=== PATIENT | male | born 1960 | race Caucasian/White ===

== ENCOUNTER 2016-11-01 18:47 | Emergency (ER) | payer BC ==
[2016-11-01 19:16] VITALS: RESP 18
[2016-11-01] MEDS ORDERED: DIPH,PERTUS(ACELL)TETVAC-LF 0.5 ML VIAL IM ONE (19:35)
[2016-11-01] MEDS ORDERED: TOPICAL SKIN ADHESIVE 1 EACH AMP TOPICAL ONE (19:35)
--- NOTE | 2016-11-01 19:48 | ED ---
Wound/Laceration HPI - General Chief Complaint: Wound/Laceration Stated Complaint: head lac Time Seen by Provider: 11/01/16 19:23 Source: patient, family Mode of arrival: ambulatory Limitations: no limitations - History of Present Illness Initial Comments: 56-year-old male patient presented to emergency department today for evaluation of a laceration to his right parietal scalp. Patient states he was blowing with his head down when he ran into the corner of the shed. He states this occurred approximate 1 hour and a half ago. He states there was a small nail hanging down which cause a laceration. He states that it did cause him to jerk back, and the weight ability for positive fall backwards. He denies hitting his head or losing consciousness. States he does have thrombocytopenia and did have to hold pressure however was able to get the bleeding controlled. He denies any other injuries. He denies any current headache, dizziness, weakness , nausea, vomiting, numbness, or tingling. Patient denies any neck pain, back pain, chest pain, shortness of breath, abdominal pain, nausea, vomiting, or difficulties with bowel movements or urination. - Related Data Home Medications Medication Instructions Recorded Confirmed Aspirin 40.5 mg PO Q48H 11/01/16 11/01/16 Multivitamins, Thera [Multivitamin 1 tab PO DAILY 11/01/16 11/01/16 (formulary)] [place]-3 Fatty Acids/Fish Oil [Fish 1 cap PO DAILY 11/01/16 11/01/16 Oil 1,000 mg Softgel] Allergies Allergy/AdvReac Type Severity Reaction Status Date / Time No Known Allergies Allergy Verified 11/01/16 19:27 Review of Systems ROS Statement: Those systems with pertinent positive or pertinent negative responses have been documented in the HPI. ROS Other: All systems not noted in ROS Statement are negative. Past Medical History Additional Past Medical History / Comment(s): low platelets History of Any Multi-Drug Resistant Organisms: None Reported Past Surgical History: Hernia Repair Past Psychological History: No Psychological Hx Reported Smoking Status: Never smoker Past Alcohol Use History: None Reported Past Drug Use History: None Reported General Exam Limitations: no limitations General appearance: alert, in no apparent distress, other (Well-developed, well- nourished adult male patient in no acute distress. He is acutely responsive. Vital signs upon presentation her temperature 97.7F, pulse 64, respirations 18 , blood pressure 147/90, pulse ox 99% on room air.) Head exam: Present: other (There is a 2 cm superficial laceration to the right parietal scalp. Bleeding is controlled. There is no bony tenderness or step- off noted.) Eye exam: Present: normal appearance, PERRL, EOMI. Absent: scleral icterus, conjunctival injection, periorbital swelling ENT exam: Present: normal exam, normal oropharynx, mucous membranes moist Neck exam: Present: normal inspection, full ROM, other (Nontender, no step-off, no deformity to firm midline palpation of the posterior cervical spine. Full range of motion without pain or limitation.). Absent: tenderness, meningismus, lymphadenopathy Respiratory exam: Present: normal lung sounds bilaterally. Absent: respiratory distress, wheezes, rales, rhonchi, stridor Cardiovascular Exam: Present: regular rate, normal rhythm, normal heart sounds. Absent: systolic murmur, diastolic murmur, rubs, gallop, clicks GI/Abdominal exam: Present: soft, normal bowel sounds. Absent: distended, tenderness, guarding, rebound, rigid Extremities exam: Present: normal inspection, full ROM, normal capillary refill. Absent: tenderness, pedal edema, joint swelling, calf tenderness Back exam: Present: normal inspection, other (Nontender, no step-off, no deformity to firm midline palpation of the thoracic and lumbar vertebrae. Full range of motion without pain or limitation.). Absent: tenderness, vertebral tenderness Neurological exam: Present: alert, oriented X3, CN II-XII intact, other ( Strength in all 4 extremities is 5/5.) Psychiatric exam: Present: normal affect, normal mood Skin exam: Present: warm, dry, intact, normal color. Absent: rash Course Vital Signs 11/01/16 19:13 Temperature 97.7 F Pulse Rate 64 Respiratory 18 Rate Blood Pressure 147/90 O2 Sat by Pulse 99 Oximetry Medical Decision Making - Medical Decision Making [id number] male patient presents to emergency department today for evaluation after striking his head on a nail hanging down from a shed. Patient does have a superficial laceration to the right parietal scalp. This was repaired using Dermabond. Patient states that he did fall backwards, and was dazed for a few moments. Patient is neurologically intact. I did recommend a computed tomography scan as patient does have a history of thrombocytopenia. He declines testing at this time and states he feels fine. Patient is educated regarding signs or symptoms of infection. Educated regarding signs or symptoms of worsening head injury. He is instructed to return immediately should any of these things occur. He is instructed to follow up his primary care physician for recheck in 1-2 days. He is instructed to return for any other new, worsening, or concerning symptoms. Patient verbalizes understanding and agrees with this plan. Disposition Clinical Impression: Scalp laceration, Head injury Disposition: HOME SELF-CARE Condition: Good Instructions: Laceration (ED), Head Injury (ED), Skin Adhesive Care (ED) Additional Instructions: Keep wound clean and dry. Monitor for signs or symptoms of infection including redness, swelling, drainage of pus, fever Or chills. Return immediately for any signs of worsening head injury including but not limited to dizziness, weakness, headache, nausea, vomiting, blurred vision, or double vision. Follow up with your primary care physician for recheck 1-2 days. Return here immediately for any new, worsening, or concerning symptoms. Referrals: John Paul Wang DO [Primary Care Provider] - 1-2 days Time of Disposition: 20:13
[2016-11-01 20:20] VITALS: BP 144/88; PULSE 66; TEMP 97.6
== END 2016-11-01 20:20 | disposition home or self-care (01) ==
LOC: EC 18:47
DX: S01.01XA Laceration without foreign body of scalp, initial encounter (principal); Z79.82 Long term (current) use of aspirin; W45.0XXA Nail entering through skin, initial encounter; Y93.02 Activity, running; Z23 Encounter for immunization
CPT/HCPCS: 12001; 90471; 90715; 99282